=== PATIENT | female | born 1975 | race Caucasian/White ===

== ENCOUNTER → 2017-03-19 | Outpatient (CLI) | payer BC ==
[2017-03-19 09:46] LABS: Basophils # (auto) 0 uL; Basophils % (auto) 0.4 % (0.0-2.0); Eosinophils # (auto) 0.1 uL; Eosinophils % (auto) 0.9 % (0.0-7.0); Hematocrit 41.5 % (36.0-46.0); Hemoglobin 14.3 g/dL (12.2-16.2); Lymphocytes # (auto) 2.1 uL; Lymphocytes % (auto) 24.5 % (10.0-50.0); Mean Corpuscular Hemoglobin 29.5 pg (28.0-32.0); Mean Corpuscular Hgb Conc. 34.5 g/dL (32.0-36.0); Mean Corpuscular Volume 85.5 fL (80.0-100.0); Mean Platelet Volume 8.6 fL (7.4-10.4); Monocytes # (auto) 0.8 uL; Monocytes % (auto) 8.9 % (0.0-12.0); Neutrophils # (auto) 5.6 uL; Neutrophils % (auto) 65.3 % (37.0-80.0); Platelet Count (auto) 217 10^3/uL (140-450); Red Cell Distribution Width 13.2 % (11.6-16.0); White Blood Cell 8.6 10^3/uL (4.4-10.8)
[2017-03-19 10:12] LABS: Albumin 3.1 g/dL (3.4-5.0); BUN/Creatinine Ratio 14.9; Bilirubin, Total 0.7 mg/dL (0.2-1.0); Calcium 8.7 mg/dL (8.5-10.1); Potassium 3.6 mmol/L (3.5-5.1); Total Protein 6.5 g/dL (6.4-8.2)
== END | disposition home or self-care (01) ==
LOC: LAB 09:26
PROVIDERS: ATTEND Internal Medicine
DX: N92.0 Excessive and frequent menstruation with regular cycle (principal)
CPT/HCPCS: 36415; 80053; 83036; 84439; 84443; 85025; 85379

== ENCOUNTER → 2017-04-14 | Outpatient (CLI) | payer BC | END | disposition home or self-care (01) | LOC: LAB 08:43 | PROVIDERS: ATTEND Obstetrics & Gynecology | DX: N39.3 Stress incontinence (female) (male) (principal) | CPT/HCPCS: 83001; 83002 ==

== ENCOUNTER → 2017-05-06 | Outpatient (CLI) | payer BC | END | disposition home or self-care (01) | LOC: LAB 11:00 | PROVIDERS: ATTEND Obstetrics & Gynecology | DX: N93.9 Abnormal uterine and vaginal bleeding, unspecified (principal) ==

== ENCOUNTER → 2017-06-03 | Outpatient (CLI) | payer BC ==
[2017-06-03 15:04] LABS: Basophils # (auto) 0 uL; Basophils % (auto) 0.5 % (0.0-2.0); CONDITION Y; Eosinophils # (auto) 0.1 uL; Eosinophils % (auto) 1.1 % (0.0-7.0); Hemoglobin 14.3 g/dL (12.2-16.2); Lymphocytes # (auto) 2.4 uL; Lymphocytes % (auto) 26.4 % (10.0-50.0); Mean Corpuscular Hemoglobin 29.6 pg (28.0-32.0); Mean Corpuscular Hgb Conc. 34.1 g/dL (32.0-36.0); Mean Corpuscular Volume 86.7 fL (80.0-100.0); Mean Platelet Volume 9.1 fL (7.4-10.4); Monocytes # (auto) 0.6 uL; Neutrophils # (auto) 5.8 uL; Platelet Count (auto) 215 10^3/uL (140-450); Red Cell Distribution Width 13.8 % (11.6-16.0); White Blood Cell 8.9 10^3/uL (4.4-10.8)
== END | disposition home or self-care (01) ==
LOC: LAB 14:33
PROVIDERS: ATTEND Obstetrics & Gynecology
DX: R53.83 Other fatigue (principal); R87.612 Low grade squamous intraepithelial lesion on cytologic smear of cervix (LGSIL)
CPT/HCPCS: 36415; 85025; 88341; 88342

== ENCOUNTER → 2017-08-06 | Day surgery (SDC) | payer BC ==
[2017-08-03 13:59] LABS: Urine Bilirubin Negative (Negative); Urine Blood Negative /uL (Negative); Urine Color Yellow (Yellow); Urine Glucose Normal (Normal); Urine Ketone Negative (Negative); Urine Nitrite Negative (Negative); Urine Urobilinogen Normal (Negative)
[2017-08-03 14:01] LABS: Basophils # (auto) 0.1 uL; Eosinophils # (auto) 0.2 uL; Eosinophils % (auto) 2.7 % (0.0-7.0); Hematocrit 43.2 % (36.0-46.0); Hemoglobin 14.4 g/dL (12.2-16.2); Lymphocytes # (auto) 2.6 uL; Lymphocytes % (auto) 30.3 % (10.0-50.0); Mean Corpuscular Hemoglobin 28.8 pg (28.0-32.0); Mean Corpuscular Hgb Conc. 33.3 g/dL (32.0-36.0); Mean Corpuscular Volume 86.6 fL (80.0-100.0); Mean Platelet Volume 9.3 fL (6.9-10.8); Monocytes # (auto) 0.6 uL; Monocytes % (auto) 6.8 % (0.0-12.0); Neutrophils % (auto) 59.2 % (37.0-80.0); Nucleated Red Blood Cells % 0.1 %; Platelet Count (auto) 200 10^3/uL (140-450); Red Cell Distribution Width 14.2 % (11.8-14.3); White Blood Cell 8.4 10^3/uL (4.4-10.8)
[2017-08-03 14:07] LABS: INR 0.92 (0.9-1.15); Partial Thromboplastin Time 22.1 sec (22.64-33.71)
[2017-08-03 15:01] LABS: BUN/Creatinine Ratio 24.6; Bilirubin, Total 0.3 mg/dL (0.2-1.0); Calcium 8.9 mg/dL (8.5-10.1); Total Protein 7.2 g/dL (6.4-8.2)
[2017-08-03 15:02] LABS: Albumin 3.5 g/dL (3.4-5.0)
[~2017-08-06] VITALS: Ht 160 cm; Wt 108.9 kg
[~2017-08-06] MED LIST: DEXAMETHASONE SOD PHOS 10MG/1ML VIAL INJ ONE; FERRIC SUBSULFATE TOPICAL SOLN 30 ML BTL ONE; IODINE STRONG 5% SOLN 473ML ONE; KETOROLAC TROMETH 30 MG/ML 1ML VIAL IV ONE; KETOROLAC TROMETH 30 MG/ML 1ML VIAL ONE; LABETALOL HCL 5 MG/ML 4ML SYRINGE IV PRN; LACTATED RINGER'S 1,000 ML IV SCH; MEPERIDINE HCL (50 MG/ML) 1 ML VIAL ONE; MIDAZOLAM HCL 1MG/1ML-2 ML VIAL IV PRN; MIDAZOLAM HCL 1MG/1ML-2 ML VIAL ONE; MORPHINE SULF INJ 2 MG/ML SYRINGE 1ML IV PRN; ONDANSETRON HCL 4 MG/2 ML VIAL IV ONE; ONDANSETRON HCL 4 MG/2 ML VIAL IV PRN; PROPOFOL 10 MG/ML 20 ML IV ONE; ceFAZolin 1GM/50ML D5W 50 ML IV ONE; ePHEDrine SULFATE 50 MG/ML AMP IV PRN; fentaNYL CITRATE 100 MCG/2 ML VL ONE
[2017-08-06] MEDS: HYDROmorphone HCL 2 MG/ML VL IV PRN ×2 (09:24→09:35)
[2017-08-06 10:05] VITALS: BP 99/59
== END | disposition home or self-care (01) ==
LOC: SUR 05:55
PROVIDERS: ATTEND Obstetrics & Gynecology
DX: R87.613 High grade squamous intraepithelial lesion on cytologic smear of cervix (HGSIL) (principal); N93.9 Abnormal uterine and vaginal bleeding, unspecified; Z98.51 Tubal ligation status; E66.01 Morbid (severe) obesity due to excess calories
CPT/HCPCS: 36415; 57520; 58563; 80053; 81003; 84702; 85025; 85610; 85730; 86850; 86900; 86901; J0690; J1100; J1170; J1885; J2175; J2250; J2704; J3010

== ENCOUNTER 2017-10-26 18:21 | Inpatient (IN) | payer BC ==
[~2017-10-26] VITALS: Ht 160 cm; Wt 104.4 kg
[2017-10-26] MEDS ORDERED: SODIUM CHLORIDE 0.9% 1,000 ML IV ONE (19:15)
[2017-10-26 19:28] LABS: Basophils # (auto) 0 uL; Basophils % (auto) 0.5 % (0.0-2.0); Eosinophils # (auto) 0.2 uL; Eosinophils % (auto) 2.3 % (0.0-7.0); Hematocrit 40.5 % (36.0-46.0); Hemoglobin 13.4 g/dL (12.2-16.2); Lymphocytes # (auto) 1.4 uL; Lymphocytes % (auto) 21.1 % (10.0-50.0); Mean Corpuscular Hemoglobin 28.2 pg (28.0-32.0); Mean Corpuscular Volume 85.6 fL (80.0-100.0); Mean Platelet Volume 8.6 fL (6.9-10.8); Monocytes # (auto) 0.7 uL; Monocytes % (auto) 9.9 % (0.0-12.0); Neutrophils # (auto) 4.5 uL; Neutrophils % (auto) 66.2 % (37.0-80.0); Nucleated Red Blood Cells % 0.1 %; Platelet Count (auto) 192 10^3/uL (140-450); Red Cell Distribution Width 14.4 % (11.8-14.3); White Blood Cell 6.7 10^3/uL (4.4-10.8)
[2017-10-26 20:06] LABS: B-Type Natriuretic Peptide 9.3 pg/mL (0-100)
[2017-10-26 20:08] LABS: Albumin 3.1 g/dL (3.4-5.0); BUN/Creatinine Ratio 26.4; Bilirubin, Total 0.3 mg/dL (0.2-1.0); Calcium 8.3 mg/dL (8.5-10.1); Magnesium 2.1 mg/dL (1.6-2.6); Potassium 3.5 mmol/L (3.5-5.1); Total Protein 6.4 g/dL (6.4-8.2)
[2017-10-26 20:18] LABS: INR 0.97 (0.9-1.15); Partial Thromboplastin Time 25.4 sec (22.64-33.71); Prothrombin Time 10.6 sec (9.37-12.3)
[2017-10-26 20:23] LABS: Temperature: 22.4 C (20.0-25.0)
[2017-10-27] MEDS ORDERED: MORPHINE SULF INJ 2 MG/ML SYRINGE 1ML IV PRN ×2 (00:45→02:00)
[2017-10-27] MEDS ORDERED: NITROGLYCERIN 0.4 MG SL TAB SL PRN (00:45)
[2017-10-27] MEDS ORDERED: ONDANSETRON HCL 4 MG/2 ML VIAL IV PRN (02:00)
[2017-10-27] MEDS ORDERED: HYDROcodone-ACET 5/325MG TAB PO PRN (02:00)
[2017-10-27] MEDS: SODIUM CHLORIDE 0.9% 1,000 ML IV SCH ×3 (02:00→23:36)
[2017-10-27] MEDS: TEMAZEPAM 15 MG CAP PO PRN ×2 (02:36→20:50)
[2017-10-27] MEDS: ACETAMINOPHEN 500 MG TAB PO PRN ×2 (02:37→20:49)
[2017-10-27 03:02] VITALS: BP 128/91
[2017-10-27 05:05] VITALS: BP 128/75
[2017-10-27 06:25] LABS: Basophils # (auto) 0 uL; Basophils % (auto) 0.5 % (0.0-2.0); Eosinophils # (auto) 0.2 uL; Eosinophils % (auto) 2.8 % (0.0-7.0); Hematocrit 40.2 % (36.0-46.0); Hemoglobin 13.5 g/dL (12.2-16.2); Lymphocytes # (auto) 2.2 uL; Lymphocytes % (auto) 34.1 % (10.0-50.0); Mean Corpuscular Hemoglobin 28.2 pg (28.0-32.0); Mean Corpuscular Hgb Conc. 33.4 g/dL (32.0-36.0); Mean Corpuscular Volume 84.5 fL (80.0-100.0); Mean Platelet Volume 8.8 fL (6.9-10.8); Monocytes # (auto) 0.8 uL; Monocytes % (auto) 12.2 % (0.0-12.0); Neutrophils # (auto) 3.2 uL; Neutrophils % (auto) 50.4 % (37.0-80.0); Nucleated Red Blood Cells % 0.1 %; Platelet Count (auto) 172 10^3/uL (140-450); Red Cell Distribution Width 14.5 % (11.8-14.3); White Blood Cell 6.4 10^3/uL (4.4-10.8)
[2017-10-27 06:57] LABS: BUN/Creatinine Ratio 20.6; Calcium 8.4 mg/dL (8.5-10.1); Potassium 3.2 mmol/L (3.5-5.1)
[2017-10-27 08:43] VITALS: BP 122/72
[2017-10-27 13:00] VITALS: BP 132/78
[2017-10-27] MEDS ORDERED: POTASSIUM CHL 10 Meq TABLET PO ONE (14:45)
[2017-10-27 16:27] VITALS: BP 121/69
[2017-10-27] MEDS: BOOST PLUS 8 ounce PO SCH (18:00)
[2017-10-27 22:00] VITALS: BP 139/72
[2017-10-28 05:17] VITALS: BP 120/72
[2017-10-28 05:53] LABS: Basophils # (auto) 0 uL; Basophils % (auto) 0.7 % (0.0-2.0); Eosinophils # (auto) 0.2 uL; Eosinophils % (auto) 3.3 % (0.0-7.0); Hematocrit 41.4 % (36.0-46.0); Hemoglobin 13.9 g/dL (12.2-16.2); Lymphocytes # (auto) 1.9 uL; Lymphocytes % (auto) 30.2 % (10.0-50.0); Mean Corpuscular Hemoglobin 28.4 pg (28.0-32.0); Mean Corpuscular Hgb Conc. 33.5 g/dL (32.0-36.0); Mean Corpuscular Volume 84.6 fL (80.0-100.0); Mean Platelet Volume 8.4 fL (6.9-10.8); Monocytes # (auto) 0.6 uL; Monocytes % (auto) 10.3 % (0.0-12.0); Neutrophils # (auto) 3.5 uL; Neutrophils % (auto) 55.5 % (37.0-80.0); Nucleated Red Blood Cells % 0.2 %; Platelet Count (auto) 169 10^3/uL (140-450); Red Cell Distribution Width 14.6 % (11.8-14.3); White Blood Cell 6.3 10^3/uL (4.4-10.8)
[2017-10-28 06:15] LABS: Albumin 2.6 g/dL (3.4-5.0); BUN/Creatinine Ratio 16.1; Calcium 7.7 mg/dL (8.5-10.1); Potassium 4.2 mmol/L (3.5-5.1)
[2017-10-28 06:18] LABS: Bilirubin, Total 0.3 mg/dL (0.2-1.0); Total Protein 5.8 g/dL (6.4-8.2)
[2017-10-28] MEDS: BOOST PLUS 8 ounce PO SCH ×3 (07:30→17:51)
[2017-10-28] MEDS: SODIUM CHLORIDE 0.9% 1,000 ML IV SCH (08:00)
[2017-10-28 09:00] VITALS: BP 113/72
[2017-10-28 13:00] VITALS: BP 119/71
[2017-10-28 17:00] VITALS: BP 124/70
[2017-10-28] MEDS: ACETAMINOPHEN 500 MG TAB PO PRN (20:12)
[2017-10-28] MEDS: TEMAZEPAM 15 MG CAP PO PRN (22:01)
[2017-10-28 22:18] VITALS: BP 115/69
[2017-10-29 04:41] VITALS: BP 120/70
[2017-10-29] MEDS: BOOST PLUS 8 ounce PO SCH ×2 (08:30→12:00)
[2017-10-29 10:53] VITALS: BP 115/72
[2017-10-29 13:00] VITALS: BP 115/72
[2017-10-29 15:06] VITALS: BP 130/74
== END 2017-10-29 14:21 | disposition home or self-care (01) | DRG 101 ==
LOC: ER 18:21 → TELE 18:22 → TELE-EAST 10-27 02:00
PROVIDERS: ADMIT Nurse Practitioner Family; ATTEND Internal Medicine
DX: G40.909 Epilepsy, unspecified, not intractable, without status epilepticus (principal); E44.0 Moderate protein-calorie malnutrition; J98.11 Atelectasis; Z68.41 Body mass index [BMI] 40.0-44.9, adult; R55 Syncope and collapse; E66.01 Morbid (severe) obesity due to excess calories; R73.9 Hyperglycemia, unspecified; E86.0 Dehydration; E87.6 Hypokalemia; Z80.8 Family history of malignant neoplasm of other organs or systems; Z82.49 Family history of ischemic heart disease and other diseases of the circulatory system; Z83.3 Family history of diabetes mellitus
CPT/HCPCS: 36415; 70450; 70551; 71010; 80048; 80053; 83036; 83735; 83880; 84443; 84484; 85025; 85379; 85610; 85730; 93005; 94761; 95819; 96360

== ENCOUNTER 2017-11-02 17:00 | Emergency (ER) | payer BC ==
[~2017-11-02] VITALS: Ht 160 cm; Wt 103.9 kg
[2017-11-02 19:31] VITALS: BP 121/84
[2017-11-02] MEDS ORDERED: KETOROLAC TROMETH 60MG/2ML VIAL IM ONE (19:45)
== END 2017-11-02 20:35 | disposition home or self-care (01) ==
LOC: ER 17:00
DX: I80.02 Phlebitis and thrombophlebitis of superficial vessels of left lower extremity (principal); I87.2 Venous insufficiency (chronic) (peripheral); Z88.1 Allergy status to other antibiotic agents
CPT/HCPCS: 93971; 96372; 99284; J1885

== ENCOUNTER → 2017-12-14 | Outpatient (CLI) | payer BC | END | disposition home or self-care (01) | LOC: XYW 07:54 | PROVIDERS: ATTEND Internal Medicine | DX: R55 Syncope and collapse (principal) | CPT/HCPCS: 93306 ==

== ENCOUNTER → 2017-12-23 | Outpatient (CLI) | payer BC ==
[2017-12-23 08:11] LABS: Calcium 9.1 mg/dL (8.5-10.1); Pre Albumin 21.7 mg/dL (20.0-40.0)
== END | disposition home or self-care (01) ==
LOC: LAB 07:28
PROVIDERS: ATTEND Internal Medicine
DX: R55 Syncope and collapse (principal)
CPT/HCPCS: 36415; 80061; 82040; 82310; 83970

== ENCOUNTER → 2018-03-22 | Outpatient (CLI) | payer BC | END | disposition home or self-care (01) | LOC: LAB 09:00 | PROVIDERS: ATTEND Obstetrics & Gynecology | DX: R87.613 High grade squamous intraepithelial lesion on cytologic smear of cervix (HGSIL) (principal) ==